=== PATIENT | male | born 1955 | race Caucasian/White ===

== ENCOUNTER 2016-11-11 08:25 | Day surgery (SDC) | payer BC ==
[2016-11-11] MEDS ORDERED: LIP40 PO (09:14)
[2016-11-11] MEDS ORDERED: solatol PO (09:14)
[2016-11-11] MEDS ORDERED: ASPI-1159 PO (09:14)
[2016-11-11] MEDS ORDERED: COR3 PO (09:15)
[2016-11-11] MEDS ORDERED: RIVA20TA PO (09:16)
[2016-11-11] MEDS ORDERED: FENTANYL CITRATE/PF 50MCG/ML 2ML VIAL ONE ×2 (11:35→11:54)
[2016-11-11] MEDS ORDERED: MIDAZOLAM HCL 5 MG/5 ML VIAL ONE (11:35)
[2016-11-11] MEDS ORDERED: TETRACAINE/BENZOCAINE/BUTAMBEN 20 GM SPRAY MM ONE (11:41)
[2016-11-11] MEDS ORDERED: LIDOCAINE HCL 2% JELLY 5ML ONE (11:42)
== END 2016-11-11 14:45 | disposition home or self-care (01) ==
LOC: CARD 08:25
PROVIDERS: ATTEND Specialist
DX: I48.91 Unspecified atrial fibrillation (principal); I10 Essential (primary) hypertension; I11.9 Hypertensive heart disease without heart failure; E78.5 Hyperlipidemia, unspecified; I34.0 Nonrheumatic mitral (valve) insufficiency; C61 Malignant neoplasm of prostate
CPT/HCPCS: 92960; 93005; 93312; 99152; 99153; J2250; J3010